=== PATIENT | male | born 1975 | race Two or more races ===

== ENCOUNTER 2022-01-10 23:40 | Emergency (ER) | payer MEDICAID, OTHER ==
[~2022-01-10] VITALS: Ht 167.6 cm; Wt 85.0 kg
[2022-01-10 23:47] VITALS: BP 132/79
== END 2022-01-11 05:32 | disposition home or self-care (01) ==
LOC: ER 23:40 → EDBD 23:40 → ER 01-11 05:32
DX: S01.01XA Laceration without foreign body of scalp, initial encounter (principal); F10.129 Alcohol abuse with intoxication, unspecified; Y90.8 Blood alcohol level of 240 mg/100 ml or more; V47.9XXA Unspecified car occupant injured in collision with fixed or stationary object in traffic accident, initial encounter; Y93.89 Activity, other specified; Y92.89 Other specified places as the place of occurrence of the external cause; Y99.8 Other external cause status
CPT/HCPCS: 12002; 70450